=== PATIENT | female | born 1965 | race Asian ===

== ENCOUNTER 2020-02-20 07:32 | Inpatient (IN) | payer OTHER ==
[2020-02-20] MEDS ORDERED: morphine CARPU-JECT 2 MG/1 ML DISP.SYRIN IVPUSH ONE ×2 (08:07→08:43)
[2020-02-20] MEDS ORDERED: ONDANSETRON 4 MG/2 ML VIAL IVPUSH ONE (08:07)
[2020-02-20] MEDS ORDERED: MORPHINE SULFATE 2 MG/ML VIAL ONE ×2 (08:20→08:31)
[2020-02-20 08:49] VITALS: BMI 30.2
[2020-02-20 09:02] LABS: BASO % 0.8 % (0-2.0); EOS % 0.6 % (0-4.5); HEMATOCRIT 42.5 % (32.4-45.2); HEMOGLOBIN 14.4 GM/dL (10.7-15.3); MCH 27.6 pg (25.7-33.7); MCHC 33.8 g/dl (32.0-36.0); MEAN CELL VOLUME 81.6 fl (80-96); MEAN PLT VOLUME 6.9 fl (7.5-11.1); MONO % 6.3 % (3.8-10.2); NEUT % 77.3 % (42.8-82.8); PLATELET COUNT 406 K/MM3 (134-434); RDW 13.7 % (11.6-15.6)
[2020-02-20 09:07] LABS: INR 1.19 (0.83-1.09); PROTHROMBIN TIME (PATIENT) 14.3 SEC (9.7-13.0)
[2020-02-20 09:10] LABS: ACTIVATED PTT 34.5 SECONDS (25.2-36.5)
[2020-02-20 09:22] LABS: ALBUMIN 3.4 g/dl (3.4-5.0); CALCIUM 9.4 mg/dL (8.5-10.1); POTASSIUM 4.1 mmol/L (3.5-5.1)
[2020-02-20 09:23] LABS: BLOOD UREA NITROGEN 9.1 mg/dL (7-18)
[2020-02-20 09:27] LABS: CREATININE 0.8 mg/dL (0.55-1.3)
[2020-02-20 09:28] LABS: BILIRUBIN,TOTAL 0.8 mg/dL (0.2-1); TOT PROT 7.5 g/dl (6.4-8.2)
[2020-02-20] MEDS ORDERED: ACETAMINOPHEN 1000 MG/100 ML VIAL (NON FORMULARY) IVPB ONE (11:30)
[2020-02-20] MEDS ORDERED: ACETAMINOPHEN INJECTION 100 ML IVPB ONE (11:30)
[2020-02-20] MEDS ORDERED: PIPERACILLIN/TAZOB 4.5 GM 4.5 GM in DEXTROSE 5%-WATER 100 ML IVPB ONE (11:38)
[2020-02-20] MEDS ORDERED: PIPERACILLIN/TAZOB 4.5 GM 4.5 GM/100 ML BAG IVPB ONE (11:44)
[2020-02-20 12:02] LABS: PH,URINE 7.5 (5.0-8.0); URINE APPEARANCE CLEAR; URINE BILIRUBIN NEGATIVE (NEGATIVE); URINE COLOR YELLOW; URINE GLUCOSE (UA) NEGATIVE (NEGATIVE); URINE KETONE NEGATIVE (NEGATIVE); URINE PROTEIN NEGATIVE (NEGATIVE)
[2020-02-20 12:03] LABS: EPI CELLS 6.2 /uL (0-25.1); HYALINE CASTS 0.38 /uL (0-3.1); URINE BACTERIA 18.1 /uL (0-1359); URINE LEUK ESTERASE NEGATIVE (NEGATIVE); URINE NITRITE NEGATIVE (NEGATIVE); URINE RBC 47.2 /uL (0-23.9); URINE UROBILINOGEN 0.2 mg/dL (0.2-1.0); URINE WBC 4.7 /uL (0-25.8)
[2020-02-20] MEDS ORDERED: PIPERACILLIN/TAZOB 3.375 GM 3.375 GM/50 ML BAG IVPB ONE (17:17)
[2020-02-20] MEDS: PIPERACILLIN/TAZOB 3.375 GM 3.375 GM in DEXTROSE 5%-WATER - 50 ML IVPB SCH (18:04)
[2020-02-21] MEDS ORDERED: DEXTROSE 5%-WATER - 50 ML IVPB ONE ×3 (02:01→17:22)
[2020-02-21] MEDS ORDERED: PIPERACILLIN/TAZOBACTAM 3.375 GM VIAL IVPB ONE ×3 (02:01→17:22)
[2020-02-21] MEDS: PIPERACILLIN/TAZOB 3.375 GM 3.375 GM in DEXTROSE 5%-WATER - 50 ML IVPB SCH ×3 (02:09→17:27)
[2020-02-21 08:31] LABS: BASO % 0.8 % (0-2.0); EOS % 2.1 % (0-4.5); HEMATOCRIT 39.7 % (32.4-45.2); HEMOGLOBIN 13.3 GM/dL (10.7-15.3); LYMPH % 20.2 % (8-40); MCH 27.7 pg (25.7-33.7); MCHC 33.6 g/dl (32.0-36.0); MEAN CELL VOLUME 82.4 fl (80-96); MEAN PLT VOLUME 6.8 fl (7.5-11.1); MONO % 7.1 % (3.8-10.2); NEUT % 69.8 % (42.8-82.8); PLATELET COUNT 415 K/MM3 (134-434); RBC 4.82 M/mm3 (3.60-5.2); RDW 13.6 % (11.6-15.6); WHITE BLOOD COUNT 14.2 K/mm3 (4.0-10.0)
[2020-02-21 08:44] LABS: CALCIUM 9.2 mg/dL (8.5-10.1)
[2020-02-21 08:49] LABS: CREATININE 0.8 mg/dL (0.55-1.3)
[2020-02-21] MEDS ORDERED: D5-1/2NS+20 MEQ KCL - 20 MEQ/1,000 ML INFUS.BAG IV SCH (10:00)
[2020-02-21] MEDS ORDERED: MORPHINE SULFATE 2 MG/ML VIAL IM PRN ×2 (12:43→12:54)
[2020-02-21] MEDS ORDERED: ONDANSETRON 4 MG/2 ML VIAL IVPUSH PRN (12:43)
[2020-02-21] MEDS: D5-1/2NS+10 MEQ KCL - 10 MEQ/1,000 ML INFUS.BAG IV SCH (13:19)
[2020-02-21] MEDS: FAMOTIDINE 20 MG/50 ML IVPB 20 MG/50 ML MG IVPB SCH ×2 (13:20→21:02)
[2020-02-21] MEDS: MORPHINE SULFATE 2 MG/ML VIAL IVPUSH PRN ×2 (17:33→23:18)
[2020-02-22] MEDS ORDERED: DEXTROSE 5%-WATER - 50 ML IVPB ONE ×3 (01:36→17:04)
[2020-02-22] MEDS ORDERED: PIPERACILLIN/TAZOBACTAM 3.375 GM VIAL IVPB ONE ×3 (01:36→17:04)
[2020-02-22] MEDS: PIPERACILLIN/TAZOB 3.375 GM 3.375 GM in DEXTROSE 5%-WATER - 50 ML IVPB SCH ×3 (01:52→17:15)
[2020-02-22 08:24] LABS: BASO % 0.7 % (0-2.0); EOS % 4.6 % (0-4.5); HEMATOCRIT 36.9 % (32.4-45.2); HEMOGLOBIN 12.7 GM/dL (10.7-15.3); MCH 28.2 pg (25.7-33.7); MCHC 34.5 g/dl (32.0-36.0); MEAN CELL VOLUME 81.9 fl (80-96); MEAN PLT VOLUME 6.6 fl (7.5-11.1); NEUT % 58.7 % (42.8-82.8); PLATELET COUNT 381 K/MM3 (134-434); RDW 13.5 % (11.6-15.6); WHITE BLOOD COUNT 9.8 K/mm3 (4.0-10.0)
[2020-02-22 08:36] LABS: POTASSIUM 4.1 mmol/L (3.5-5.1)
[2020-02-22 08:38] LABS: ALBUMIN 2.8 g/dl (3.4-5.0); BLOOD UREA NITROGEN 8.4 mg/dL (7-18); CALCIUM 8.5 mg/dL (8.5-10.1); MAGNESIUM 2.4 mg/dL (1.8-2.4)
[2020-02-22 08:42] LABS: CREATININE 0.8 mg/dL (0.55-1.3)
[2020-02-22 08:43] LABS: BILIRUBIN,TOTAL 0.5 mg/dL (0.2-1); TOT PROT 6.2 g/dl (6.4-8.2)
[2020-02-22] MEDS: FAMOTIDINE 20 MG/50 ML IVPB 20 MG/50 ML MG IVPB SCH ×2 (09:13→21:03)
[2020-02-22] MEDS: ACETAMINOPHEN 325 MG TABLET (FP) PO PRN ×2 (11:23→21:03)
[2020-02-22] MEDS: D5-1/2NS+10 MEQ KCL - 10 MEQ/1,000 ML INFUS.BAG IV SCH (17:16)
[2020-02-23] MEDS ORDERED: PIPERACILLIN/TAZOBACTAM 3.375 GM VIAL IVPB ONE ×3 (00:52→17:13)
[2020-02-23] MEDS ORDERED: DEXTROSE 5%-WATER - 50 ML IVPB ONE ×3 (00:52→17:13)
[2020-02-23] MEDS: PIPERACILLIN/TAZOB 3.375 GM 3.375 GM in DEXTROSE 5%-WATER - 50 ML IVPB SCH ×3 (01:16→17:18)
[2020-02-23] MEDS: FAMOTIDINE 20 MG/50 ML IVPB 20 MG/50 ML MG IVPB SCH ×2 (09:54→21:36)
[2020-02-23] MEDS: D5-1/2NS+10 MEQ KCL - 10 MEQ/1,000 ML INFUS.BAG IV SCH ×3 (11:31→21:36)
[2020-02-23] MEDS: ACETAMINOPHEN 325 MG TABLET (FP) PO PRN (22:20)
[2020-02-24] MEDS ORDERED: PIPERACILLIN/TAZOBACTAM 3.375 GM VIAL IVPB ONE ×3 (00:58→17:37)
[2020-02-24] MEDS ORDERED: DEXTROSE 5%-WATER - 50 ML IVPB ONE ×3 (00:59→17:37)
[2020-02-24] MEDS: PIPERACILLIN/TAZOB 3.375 GM 3.375 GM in DEXTROSE 5%-WATER - 50 ML IVPB SCH ×3 (01:17→17:41)
[2020-02-24] MEDS ORDERED: D5-1/2NS+10 MEQ KCL - 10 MEQ/1,000 ML INFUS.BAG IV SCH (09:15)
[2020-02-24] MEDS: FAMOTIDINE 20 MG/50 ML IVPB 20 MG/50 ML MG IVPB SCH ×2 (09:54→21:06)
[2020-02-25] MEDS ORDERED: DEXTROSE 5%-WATER - 50 ML IVPB ONE (01:04)
[2020-02-25] MEDS ORDERED: PIPERACILLIN/TAZOBACTAM 3.375 GM VIAL IVPB ONE (01:04)
[2020-02-25] MEDS: PIPERACILLIN/TAZOB 3.375 GM 3.375 GM in DEXTROSE 5%-WATER - 50 ML IVPB SCH (01:11)
[2020-02-25] MEDS: ACETAMINOPHEN 325 MG TABLET (FP) PO PRN (01:58)
[2020-02-25 10:23] VITALS: BP 119/61; PULSE 60; TEMP 97.7
== END 2020-02-25 11:50 | disposition home or self-care (01) | DRG 244 ==
LOC: JER 07:32 → JERBED 11:39 → J8W 22:44
PROVIDERS: ADMIT Internal Medicine; ATTEND Internal Medicine
DX: K57.20 Diverticulitis of large intestine with perforation and abscess without bleeding (principal); R10.9 Unspecified abdominal pain; E78.5 Hyperlipidemia, unspecified
CPT/HCPCS: 36415; 74177-TC; 80048; 80053; 81003; 83605; 83690; 83735; 85025; 85610; 85730; 86140; 86850; 86900; 86901; 93005; 93010; 99285-25; C9803; J0131; Q9967; U0003

== ENCOUNTER 2022-05-17 20:41 | Observation (INO) | payer OTHER ==
[2022-05-17 20:45] VITALS: BMI 29.5
[2022-05-17] MEDS ORDERED: SODIUM CHLORIDE 1,000 ML IV STA (22:58)
[2022-05-17] MEDS ORDERED: ONDANSETRON 4 MG/2 ML VIAL IVPUSH ONE (22:58)
[2022-05-17] MEDS ORDERED: morphine CARPU-JECT 2 MG/1 ML DISP.SYRIN IVPUSH ONE (22:58)
[2022-05-17] MEDS ORDERED: ONDANSETRON 4 MG/2 ML VIAL ONE (23:05)
[2022-05-17 23:30] LABS: EPI CELLS 5 /uL (0-25.1); HYALINE CASTS 0 /uL (0-3.1); URINE APPEARANCE CLEAR; URINE BACTERIA 34 /uL (0-1359); URINE BILIRUBIN NEGATIVE (NEGATIVE); URINE COLOR YELLOW; URINE GLUCOSE (UA) NEGATIVE (NEGATIVE); URINE KETONE NEGATIVE (NEGATIVE); URINE LEUK ESTERASE 1+ (NEGATIVE); URINE NITRITE NEGATIVE (NEGATIVE); URINE PROTEIN NEGATIVE (NEGATIVE); URINE RBC 6 /uL (0-23.9); URINE UROBILINOGEN 0.2 mg/dL (0.2-1.0); URINE WBC 14 /uL (0-25.8)
[2022-05-17 23:34] LABS: INR 1.02 (0.83-1.09); PROTHROMBIN TIME (PATIENT) 11.8 SEC (9.7-13.0)
[2022-05-17 23:36] LABS: ACTIVATED PTT 33.3 SECONDS (25.2-36.5)
[2022-05-17 23:47] LABS: ALBUMIN 3.3 g/dl (3.4-5.0); BLOOD UREA NITROGEN 12.2 mg/dL (7-18); CALCIUM 9.1 mg/dL (8.5-10.1)
[2022-05-17 23:50] LABS: CREATININE 0.8 mg/dL (0.55-1.3)
[2022-05-17 23:53] LABS: BILIRUBIN,TOTAL 0.6 mg/dL (0.2-1); TOT PROT 6.8 g/dl (6.4-8.2)
[2022-05-18] MEDS ORDERED: CIPROFLOXACIN 500 MG TABLET (RESTRICTED TO ID) PO ONE (01:06)
[2022-05-18] MEDS ORDERED: metroNIDAZOLE 500 MG TABLET PO ONE (01:07)
[2022-05-18] MEDS ORDERED: CIPROFLOXACIN 400 MG/D5W 400 MG/200 ML IVPB IVPB ONE (01:17)
[2022-05-18 01:21] LABS: BASO % 0.5 % (0-2.0); EOS % 0.7 % (0-4.5); HEMATOCRIT 38.2 % (32.4-45.2); HEMOGLOBIN 13.2 GM/dL (10.7-15.3); LYMPH % 21.8 % (8-40); MCH 28.4 pg (25.7-33.7); MCHC 34.4 g/dl (32.0-36.0); MEAN CELL VOLUME 82.3 fl (80-96); MEAN PLT VOLUME 6.2 fl (7.5-11.1); MONO % 6.2 % (3.8-10.2); NEUT % 70.8 % (42.8-82.8); PLATELET COUNT 380 10^3/uL (134-434); RBC 4.64 M/mm3 (3.60-5.2); RDW 13.7 % (11.6-15.6); WHITE BLOOD COUNT 15.9 K/mm3 (4.0-10.0)
[2022-05-18] MEDS ORDERED: morphine CARPU-JECT 4 MG/1 ML DISP.SYRIN IVPUSH ONE (01:25)
[2022-05-18] MEDS ORDERED: morphine SULFATE 4 MG/ML VIAL ONE (01:28)
[2022-05-18] MEDS ORDERED: DEXTROSE 5%-0.45% SALINE 1,000 ML IV SCH (02:30)
[2022-05-18 07:58] LABS: CALCIUM 7.9 mg/dL (8.5-10.1)
[2022-05-18 08:02] LABS: CREATININE 0.8 mg/dL (0.55-1.3)
[2022-05-18 08:15] LABS: BASO % 0.5 % (0-2.0); HEMATOCRIT 36.8 % (32.4-45.2); HEMOGLOBIN 12.4 GM/dL (10.7-15.3); LYMPH % 26.4 % (8-40); MCH 27.9 pg (25.7-33.7); MCHC 33.8 g/dl (32.0-36.0); MEAN CELL VOLUME 82.6 fl (80-96); MEAN PLT VOLUME 6.5 fl (7.5-11.1); MONO % 6.2 % (3.8-10.2); NEUT % 65.9 % (42.8-82.8); PLATELET COUNT 355 10^3/uL (134-434); RBC 4.46 M/mm3 (3.60-5.2); RDW 13.9 % (11.6-15.6); WHITE BLOOD COUNT 11.7 K/mm3 (4.0-10.0)
[2022-05-18] MEDS: D5-NS + 20 MEQ KCL - 20 MEQ/1,000 ML INFUS.BAG IV SCH ×2 (12:55→23:51)
[2022-05-18] MEDS: ACETAMINOPHEN 1000 MG/100 ML BAG IVPB PRN (16:26)
[2022-05-18] MEDS: PIPERACILLIN/TAZOB 3.375 GM 3.375 GM in DEXTROSE 5%-WATER - 50 ML IVPB SCH (18:31)
[2022-05-19] MEDS: PIPERACILLIN/TAZOB 3.375 GM 3.375 GM in DEXTROSE 5%-WATER - 50 ML IVPB SCH ×3 (01:27→17:06)
[2022-05-19] MEDS: ACETAMINOPHEN 1000 MG/100 ML BAG IVPB PRN ×3 (05:50→17:33)
[2022-05-19 09:00] LABS: BASO % 0.9 % (0-2.0); EOS % 1.5 % (0-4.5); HEMOGLOBIN 12.4 GM/dL (10.7-15.3); LYMPH % 24.9 % (8-40); MCH 29.1 pg (25.7-33.7); MCHC 35.4 g/dl (32.0-36.0); MEAN CELL VOLUME 82.3 fl (80-96); MEAN PLT VOLUME 6.9 fl (7.5-11.1); MONO % 6.5 % (3.8-10.2); NEUT % 66.2 % (42.8-82.8); PLATELET COUNT 336 10^3/uL (134-434); RBC 4.26 M/mm3 (3.60-5.2); RDW 13.6 % (11.6-15.6); WHITE BLOOD COUNT 10.5 K/mm3 (4.0-10.0)
[2022-05-19 09:20] LABS: ALBUMIN 2.6 g/dl (3.4-5.0); BLOOD UREA NITROGEN 6.4 mg/dL (7-18); CALCIUM 8.4 mg/dL (8.5-10.1)
[2022-05-19 09:24] LABS: CREATININE 0.7 mg/dL (0.55-1.3)
[2022-05-19 09:25] LABS: BILIRUBIN,TOTAL 0.9 mg/dL (0.2-1); TOT PROT 5.7 g/dl (6.4-8.2)
[2022-05-19] MEDS: D5-NS + 20 MEQ KCL - 20 MEQ/1,000 ML INFUS.BAG IV SCH (10:54)
[2022-05-19] MEDS: ONDANSETRON 4 MG/2 ML VIAL IVPUSH PRN ×2 (15:17→21:17)
[2022-05-19] MEDS: FAMOTIDINE 20 MG/50 ML IVPB 20 MG/50 ML MG IVPB SCH (21:12)
[2022-05-20] MEDS: PIPERACILLIN/TAZOB 3.375 GM 3.375 GM in DEXTROSE 5%-WATER - 50 ML IVPB SCH ×3 (02:34→17:17)
[2022-05-20] MEDS: D5-NS + 20 MEQ KCL - 20 MEQ/1,000 ML INFUS.BAG IV SCH ×3 (06:59→20:52)
[2022-05-20 08:35] LABS: BASO % 1.4 % (0-2.0); HEMATOCRIT 38.2 % (32.4-45.2); HEMOGLOBIN 13.1 GM/dL (10.7-15.3); LYMPH % 27.5 % (8-40); MCH 28.2 pg (25.7-33.7); MCHC 34.3 g/dl (32.0-36.0); MEAN CELL VOLUME 82.3 fl (80-96); MEAN PLT VOLUME 6.5 fl (7.5-11.1); MONO % 6.4 % (3.8-10.2); NEUT % 62.7 % (42.8-82.8); PLATELET COUNT 387 10^3/uL (134-434); RBC 4.65 M/mm3 (3.60-5.2); RDW 13.5 % (11.6-15.6); WHITE BLOOD COUNT 9.7 K/mm3 (4.0-10.0)
[2022-05-20 09:02] LABS: BLOOD UREA NITROGEN 4.8 mg/dL (7-18)
[2022-05-20 09:03] LABS: ALBUMIN 2.9 g/dl (3.4-5.0); CALCIUM 8.7 mg/dL (8.5-10.1); MAGNESIUM 2.4 mg/dL (1.8-2.4)
[2022-05-20 09:05] LABS: CREATININE 0.8 mg/dL (0.55-1.3)
[2022-05-20 09:07] LABS: BILIRUBIN,TOTAL 0.4 mg/dL (0.2-1); TOT PROT 6.1 g/dl (6.4-8.2)
[2022-05-20] MEDS: FAMOTIDINE 20 MG/50 ML IVPB 20 MG/50 ML MG IVPB SCH ×2 (09:28→21:50)
[2022-05-20 15:01] VITALS: RESP 18
[2022-05-21] MEDS: PIPERACILLIN/TAZOB 3.375 GM 3.375 GM in DEXTROSE 5%-WATER - 50 ML IVPB SCH ×2 (01:05→10:14)
[2022-05-21] MEDS: D5-NS + 20 MEQ KCL - 20 MEQ/1,000 ML INFUS.BAG IV SCH (05:20)
[2022-05-21 09:46] LABS: BASO % 0.9 % (0-2.0); EOS % 2.3 % (0-4.5); HEMATOCRIT 40.9 % (32.4-45.2); HEMOGLOBIN 13.8 GM/dL (10.7-15.3); LYMPH % 41.9 % (8-40); MCHC 33.6 g/dl (32.0-36.0); MEAN CELL VOLUME 83.1 fl (80-96); MEAN PLT VOLUME 6.7 fl (7.5-11.1); MONO % 5.2 % (3.8-10.2); NEUT % 49.7 % (42.8-82.8); PLATELET COUNT 428 10^3/uL (134-434); RBC 4.92 M/mm3 (3.60-5.2); RDW 13.6 % (11.6-15.6); WHITE BLOOD COUNT 9.1 K/mm3 (4.0-10.0)
[2022-05-21] MEDS ORDERED: FAMOTIDINE 20 MG TABLET PO SCH (10:00)
[2022-05-21 10:19] LABS: BLOOD UREA NITROGEN 5.9 mg/dL (7-18)
[2022-05-21 10:22] LABS: CREATININE 0.8 mg/dL (0.55-1.3)
[2022-05-21] MEDS ORDERED: levoFLOXacin 750 MG TABLET PO SCH (13:30)
[2022-05-21] MEDS ORDERED: ONDANSETRON 4 MG TABLET PO PRN (13:31)
[2022-05-21 13:44] VITALS: BP 114/52; PULSE 72; TEMP 97.9
[2022-05-21] MEDS ORDERED: metroNIDAZOLE 250 MG TABLET PO SCH (14:00)
[2022-05-21] MEDS ORDERED: AMOX TR/POT CLAV 875MG/125MG TABLETS (FP) PO SCH (17:30)
== END 2022-05-21 16:11 | disposition home or self-care (01) ==
LOC: JER 20:41 → JERBED 05-18 01:14 → J5S 05-18 08:57
PROVIDERS: ADMIT Internal Medicine; ATTEND Internal Medicine
PROC: 3E033GC Introduction of Other Therapeutic Substance into Peripheral Vein, Percutaneous Approach (ICD-10-PCS; principal; 2022-05-18)
PROC: 3E033NZ Introduction of Analgesics, Hypnotics, Sedatives into Peripheral Vein, Percutaneous Approach (ICD-10-PCS; 2022-05-18)
PROC: 3E03329 Introduction of Other Anti-infective into Peripheral Vein, Percutaneous Approach (ICD-10-PCS; 2022-05-18)
PROC: 3E0337Z Introduction of Electrolytic and Water Balance Substance into Peripheral Vein, Percutaneous Approach (ICD-10-PCS; 2022-05-18)
DX: K57.92 Diverticulitis of intestine, part unspecified, without perforation or abscess without bleeding (principal); E78.5 Hyperlipidemia, unspecified; R10.32 Left lower quadrant pain; D72.829 Elevated white blood cell count, unspecified
CPT/HCPCS: 0241U-QW; 36415; 74177-TC; 80048; 80053; 81003; 83605; 83735; 84484; 85025; 85610; 85730; 86140; 86850; 86900; 86901; 87040; 87086; 93005; 93010; 96361; 96365; 96366; 96368; 96375; 96376; 99285-25; G0378; Q9967

== ENCOUNTER 2022-08-11 04:22 | Inpatient (IN) | payer OTHER ==
[2022-08-11 09:23] VITALS: BMI 30.2
[2022-08-11] MEDS ORDERED: ACETAMINOPHEN INJECTION 100 ML IVPB ONE (10:15)
[2022-08-11] MEDS ORDERED: PROPOFOL 20 ML ONE (10:18)
[2022-08-11] MEDS ORDERED: ROCURONIUM BROMIDE 50 MG/5 ML SYRINGE ONE ×2 (10:18→11:09)
[2022-08-11] MEDS ORDERED: SUCCINYLCHOLINE CHLORIDE 200 MG/10 ML SYRINGE ONE (10:18)
[2022-08-11] MEDS ORDERED: MIDAZOLAM HCL 2 MG/2 ML SINGLE DOSE VIAL ONE (10:19)
[2022-08-11] MEDS ORDERED: ONDANSETRON 4 MG/2 ML VIAL IVPUSH PRN ×2 (10:29→16:34)
[2022-08-11] MEDS ORDERED: ACETAMINOPHEN 325 MG TABLET (FP) PO PRN (10:29)
[2022-08-11] MEDS ORDERED: oxyCODONE HCL 5 MG TABLET PO PRN ×3 (10:29→16:34)
[2022-08-11] MEDS ORDERED: LACTATED RINGERS SOLUTION 1,000 ML IV SCH (10:30)
[2022-08-11] MEDS ORDERED: BUPIVACAINE HCL/PF 0.5% (5MG/ML) 10 ML VIAL ONE (10:55)
[2022-08-11] MEDS ORDERED: ERTAPENEM SODIUM 1 GM VIAL IVPB ONE (11:15)
[2022-08-11] MEDS ORDERED: HYDROmorphone HCl 2 MG/ML VIAL ONE (11:16)
[2022-08-11] MEDS ORDERED: BUPIVACAINE HCL/PF 0.5% (5MG/ML) 10 ML VIAL IJ ONE ×4 (11:23→15:36)
[2022-08-11] MEDS ORDERED: NEOSTIGMINE METHYLSULFATE 0.5 MG/1 ML - 10 ML MDV ONE (12:05)
[2022-08-11] MEDS ORDERED: PHENYLEPHRINE HCL 10 MG/1 ML SINGLE DOSE VIAL ONE (12:05)
[2022-08-11] MEDS ORDERED: INDOCYANINE GREEN 25 MG/10 ML VIAL IVPUSH ONE (13:26)
[2022-08-11] MEDS ORDERED: GLYCOPYRROLATE 0.2 MG/1 ML VIAL ONE ×2 (15:15)
[2022-08-11] MEDS ORDERED: ACETAMINOPHEN 1000 MG/100 ML BAG IVPB SCH (15:30)
[2022-08-11] MEDS: ACETAMINOPHEN 1000 MG/100 ML BAG IVPB SCH ×2 (16:30→23:53)
[2022-08-11] MEDS ORDERED: CEFAZOLIN SODIUM 2 GM in DEXTROSE 5%-WATER 100 ML IVPB SCH (20:00)
[2022-08-11] MEDS: LACTATED RINGERS SOLUTION 1,000 ML IV SCH (23:14)
[2022-08-12] MEDS: ACETAMINOPHEN 1000 MG/100 ML BAG IVPB SCH ×2 (07:54→15:52)
[2022-08-12] MEDS: LACTATED RINGERS SOLUTION 1,000 ML IV SCH (07:58)
[2022-08-12] MEDS: ENOXAPARIN NA (PORCINE) 40 MG/0.4 ML DISP.SYRIN SQ SCH (09:27)
[2022-08-12 10:31] LABS: BASO % 0.5 % (0-2.0); EOS % 0.4 % (0-4.5); HEMATOCRIT 35.2 % (32.4-45.2); HEMOGLOBIN 12.3 GM/dL (10.7-15.3); LYMPH % 23.9 % (8-40); MCH 28.6 pg (25.7-33.7); MEAN CELL VOLUME 81.8 fl (80-96); MONO % 6.1 % (3.8-10.2); NEUT % 69.1 % (42.8-82.8); PLATELET COUNT 336 10^3/uL (134-434); RDW 13.8 % (11.6-15.6)
[2022-08-12 10:32] LABS: POTASSIUM 3.9 mmol/L (3.5-5.1)
[2022-08-12 10:39] LABS: ALBUMIN 2.8 g/dl (3.4-5.0); BLOOD UREA NITROGEN 9.7 mg/dL (7-18); CALCIUM 8.3 mg/dL (8.5-10.1)
[2022-08-12 10:40] LABS: MAGNESIUM 2.1 mg/dL (1.8-2.4)
[2022-08-12 10:42] LABS: CREATININE 0.7 mg/dL (0.55-1.3); PHOSPHOROUS 3.2 mg/dL (2.5-4.9)
[2022-08-12] MEDS: oxyCODONE HCL 5 MG TABLET PO PRN ×2 (10:42→21:45)
[2022-08-12 10:44] LABS: BILIRUBIN,TOTAL 0.7 mg/dL (0.2-1); TOT PROT 5.8 g/dl (6.4-8.2)
[2022-08-12] MEDS ORDERED: BACITRACIN ZINC 15 GM TUBE TOPICAL OINTMENT TP ONE (12:45)
[2022-08-12] MEDS: BACITRACIN ZINC 15 GM TUBE TOPICAL OINTMENT TP SCH (13:49)
[2022-08-12] MEDS ORDERED: LACTATED RINGERS SOLUTION 1,000 ML IV SCH (17:50)
[2022-08-12] MEDS: FAMOTIDINE 20 MG/50 ML IVPB 20 MG/50 ML MG IVPB SCH (21:46)
[2022-08-13] MEDS: ACETAMINOPHEN 1000 MG/100 ML BAG IVPB SCH ×4 (00:15→23:49)
[2022-08-13] MEDS: ENOXAPARIN NA (PORCINE) 40 MG/0.4 ML DISP.SYRIN SQ SCH (09:22)
[2022-08-13] MEDS: FAMOTIDINE 20 MG/50 ML IVPB 20 MG/50 ML MG IVPB SCH ×2 (09:22→21:33)
[2022-08-13] MEDS: BACITRACIN ZINC 15 GM TUBE TOPICAL OINTMENT TP SCH (09:23)
[2022-08-13 09:58] LABS: BASO % 1.1 % (0-2.0); EOS % 2.6 % (0-4.5); HEMATOCRIT 35.6 % (32.4-45.2); HEMOGLOBIN 12.2 GM/dL (10.7-15.3); LYMPH % 22.1 % (8-40); MCH 28.2 pg (25.7-33.7); MCHC 34.2 g/dl (32.0-36.0); MEAN CELL VOLUME 82.3 fl (80-96); MEAN PLT VOLUME 6.5 fl (7.5-11.1); MONO % 5.3 % (3.8-10.2); NEUT % 68.9 % (42.8-82.8); PLATELET COUNT 375 10^3/uL (134-434); RBC 4.32 M/mm3 (3.60-5.2); WHITE BLOOD COUNT 12.6 K/mm3 (4.0-10.0)
[2022-08-13 10:25] LABS: CALCIUM 8.3 mg/dL (8.5-10.1)
[2022-08-13 10:26] LABS: ALBUMIN 2.7 g/dl (3.4-5.0); BLOOD UREA NITROGEN 6.7 mg/dL (7-18)
[2022-08-13 10:29] LABS: CREATININE 0.7 mg/dL (0.55-1.3)
[2022-08-13 10:31] LABS: BILIRUBIN,TOTAL 0.8 mg/dL (0.2-1)
[2022-08-13] MEDS ORDERED: LACTATED RINGERS SOLUTION 1,000 ML IV SCH (17:06)
[2022-08-13] MEDS ORDERED: MELATONIN 5 MG TABLETS PO ONE (20:31)
[2022-08-14 08:34] VITALS: TEMP 97.7
[2022-08-14] MEDS: ACETAMINOPHEN 1000 MG/100 ML BAG IVPB SCH (10:09)
[2022-08-14] MEDS: BACITRACIN ZINC 15 GM TUBE TOPICAL OINTMENT TP SCH (10:10)
[2022-08-14 10:18] LABS: BASO % 0.5 % (0-2.0); EOS % 3.9 % (0-4.5); HEMATOCRIT 35.5 % (32.4-45.2); HEMOGLOBIN 12.2 GM/dL (10.7-15.3); LYMPH % 16.7 % (8-40); MCH 27.9 pg (25.7-33.7); MCHC 34.3 g/dl (32.0-36.0); MEAN CELL VOLUME 81.3 fl (80-96); MEAN PLT VOLUME 6.5 fl (7.5-11.1); MONO % 4.3 % (3.8-10.2); NEUT % 74.6 % (42.8-82.8); PLATELET COUNT 402 10^3/uL (134-434); RBC 4.36 M/mm3 (3.60-5.2); RDW 13.5 % (11.6-15.6); WHITE BLOOD COUNT 12.2 K/mm3 (4.0-10.0)
[2022-08-14 10:28] LABS: POTASSIUM 3.3 mmol/L (3.5-5.1)
[2022-08-14 10:30] LABS: CALCIUM 8.3 mg/dL (8.5-10.1)
[2022-08-14] MEDS: FAMOTIDINE 20 MG/50 ML IVPB 20 MG/50 ML MG IVPB SCH (10:30)
[2022-08-14 10:31] LABS: ALBUMIN 2.6 g/dl (3.4-5.0); BLOOD UREA NITROGEN 5.8 mg/dL (7-18)
[2022-08-14] MEDS: ENOXAPARIN NA (PORCINE) 40 MG/0.4 ML DISP.SYRIN SQ SCH (10:31)
[2022-08-14 10:34] LABS: CREATININE 0.7 mg/dL (0.55-1.3)
[2022-08-14 10:36] LABS: BILIRUBIN,TOTAL 0.6 mg/dL (0.2-1)
[2022-08-14 14:45] VITALS: BP 122/63; PULSE 80; RESP 18
== END 2022-08-14 18:03 | disposition home or self-care (01) | DRG 221 ==
LOC: J2C 04:22 → J6S 20:42
PROVIDERS: ADMIT Surgery; ATTEND Internal Medicine
PROC: 8E0W4CZ Robotic Assisted Procedure of Trunk Region, Percutaneous Endoscopic Approach (ICD-10-PCS; 2022-08-11)
PROC: 0DTN4ZZ Resection of Sigmoid Colon, Percutaneous Endoscopic Approach (ICD-10-PCS; principal; 2022-08-11 10:45)
DX: K57.32 Diverticulitis of large intestine without perforation or abscess without bleeding (principal); E78.5 Hyperlipidemia, unspecified; E87.6 Hypokalemia
CPT/HCPCS: 36415; 80048; 80053; 83735; 84100; 85025; 86850; 86900; 86901; 88305-TC; 88307-TC; 94010; 94760